=== PATIENT | female | born 1960 | race Caucasian/White ===

== ENCOUNTER 2025-01-13 21:10 | Emergency (ER) | payer OTHER, SELFPAY ==
[2025-01-13 21:19] VITALS: BP 160/109
[2025-01-13 21:40] LABS: % Eosinophils 14.1 % (0-6); % Immature Granulocytes 0.2 % (0-0.5); % Lymphocytes 30.8 % (20.5-51.1); % Monocytes 4.6 % (1.7-9.3); % Neutrophils 49.3 % (42.2-75.2); Absolute Basophils 0.1 10^3/uL (0-0.2); Absolute Eosinophils 1.4 10^3/uL (0-0.7); Absolute Lymphocytes 3.1 10^3/uL (1.2-3.4); Absolute Monocytes 0.5 10^3/uL (0.1-0.6); Hemoglobin 16.5 g/dL (12.0-16.0); Mean Corp Hgb Conc. 36.7 g/dL (33.0-37.0); Mean Corpuscular Hgb 33.3 pg (27.0-31.0); Mean Corpuscular Volume 90.9 fL (81.0-99.0); Nucleated Red Blood Cells % 0 %; Platelet Count 180 10^3/uL (130-400); Red Blood Cell Count 4.95 10^6/uL (4.20-5.40); Red Cell Dist. Width 12.2 % (11.5-14.5); White Blood Cell Count 10.1 10^3/uL (4.8-10.8)
[2025-01-13 21:54] LABS: ALT (SGPT) 46 U/L (0-35); AST (SGOT) 32 U/L (14-36); Albumin 4.3 g/dl (3.5-5.0); Alkaline Phosphatase 91 U/L (38-126); Blood Urea Nitrogen 17 mg/dl (7-17); Calcium 10.1 mg/dl (8.4-10.2); Carbon Dioxide 22 mmol/L (22-30); Chloride 108 mmol/L (98-107); Glucose 124 mg/dl (70-99); Potassium 3.9 mmol/L (3.5-5.1); Sodium 140 mmol/L (135-145); Total Bilirubin 0.6 mg/dl (0.2-1.3); Total Protein 7.5 g/dl (6.3-8.2); eGFR > 60.00
[2025-01-13 22:04] LABS: Troponin I < 0.012 ng/ml
[2025-01-13 23:06] VITALS: BP 153/97
[2025-01-13 23:12] VITALS: BMI 30.1
--- NOTE | 2025-01-13 23:31 | ED.GENMED ---
History of Present Illness
General
Chief Complaint: Cardiac Symptoms
Source: patient
Exam Limitations: none
Time Seen by Provider: 01/13/25 23:31
Nursing documentation reviewed up to this point in time: agreed with
History of Present Illness
History of Present Illness:
This is 65-year-old female with past medical history of asthma who presents emergency department today with concerns of chest pain. This started 3 days ago. Patient reports when the symptoms were started, she compares it to indigestion. She
reports that she had a burning sensation in middle of her chest associated with a lot of belching. Patient reports that she did take Pepcid which seemed to improve her symptoms. She reports that the symptoms came back and were lasting longer than
usual. Did not seem to be related to eating. She she did have some epigastric discomfort earlier which resolved. Patient currently denies abdominal pain. Patient reports that earlier today, she was gardening when she noticed the pain come back.
She is not short of breath. She denies any recent long distance travel or any redness or swelling in her legs. The pain resolved without intervention. Currently she is pain-free. She has no personal history of coronary artery disease. She does
have a family history of her mom at age 50 having a heart attack. She does not smoke.
Review of Systems
Review of Systems
All Other Systems: ROS reviewed and negative except as documented in HPI and ROS
Phy Exam
Physical Exam
Physical Exam:
General: Patient is well appearing and in no acute distress; non-toxic
Skin: Warm and dry, no rashes or lesions
Head: Normocephalic, atraumatic
Eyes: Sclera non-icteric. EOMs intact.
Cardiac: Regular rate and rhythm, no murmurs, no tenderness palpation of external chest wall
Peripheral Vascular: No lower extremity swelling or edema, 2+ dorsalis pedis pulses bilaterally, 2+ radial pulses bilaterally
Pulm: Normal respiratory effort, no wheezes, rales,
Abdomen: No abdominal tenderness to palpation, no palpable abdominal masses
Neuro: CN II-XII intact, no focal neurologic deficits.
Psychiatric: Appropriate mood and affect.
Scores
PE Wells Score
Symptoms of DVT: No
No alternative diagnosis better explains the illness: No
Tachycardia with pulse > 100: No
Immobilization (>=3 days) or surgery within previous 4 weeks: No
Prior history of DVT or pulmonary embolism: No
Presence of hemoptysis: No
Presence of malignancy: No
Pulmonary Embolism Risk Score: 0
Probability of PE: Pt is low risk
Course
Orders/Labs/Results
Orders:
Orders
01/13/25 21:11
ECG [Electrocardiogram (*1)] Urgent
Reason for Study: Chest Pain
EKG- Treatment ONCE
01/13/25 21:22
Cardiac Monitoring- Treatment ONCE
O2 Therapy [RESP] Urgent
Titrate/Wean O2 to maintain O2 sat greater than (%): 90
Special Instructions: Maintain sats >/=90%
Pulse Ox/spot Check [RESP] Urgent
Quantity: 1
Special Instructions: ON ROOM AIR
01/13/25 21:32
Complete Blood Count/With Diff Urgent
Comprehensive Metabolic Panel Urgent
Lipase Urgent
Comment: ADD ON
Troponin I Urgent
01/13/25 23:37
CR Chest - 2 Views Urgent
Comment:
Reason For Exam: CHEST PAIN
01/13/25 23:48
Add On- LAB Urgent
Tests Added?: lipase
Abnormal Lab Results
01/13/25
21:32
Hgb 16.5 H g/dL
(12.0-16.0)
MCH 33.3 H pg
(27.0-31.0)
Absolute Eos (auto) 1.4 H 10^3/uL
(0-0.7)
Eosinophils % 14.1 H %
(0-6)
Chloride 108 H mmol/L
(98-107)
Glucose 124 H mg/dl
(70-99)
ALT 46 H U/L
(0-35)
01/13/25 21:32
01/13/25 21:32
Vital Signs
Initial and Last Documented VS:
Initial Vital Signs
Temp Pulse Resp BP Pulse Ox
98.0 F 81 19 160/109 97
01/13/25 21:19 01/13/25 21:19 01/13/25 21:19 01/13/25 21:19 01/13/25 21:19
Last Documented Vital Signs
Temp Pulse Resp BP Pulse Ox
98.0 F 70 13 136/73 97
01/13/25 21:19 01/13/25 23:45 01/13/25 23:45 01/14/25 01:00 01/14/25 01:15
MDM/Problems Addressed
Differential Diagnosis Includes:
Differentials include ACS, pneumothorax, GERD, costochondritis
MDM/Problems Addressed:
65-year-old female presents emergency department today with concerns of squeezing chest pain. Started a few days ago. No associated shortness of breath. She had associated belching with it and transient epigastric pain. Currently she is
pain-free. On physical exam she is well-appearing no acute distress she is no epigastric tenderness. Her blood work is unremarkable. Her LFTs are normal. Her troponin is undetectable. Her EKG is nonischemic. Her chest x-ray is normal. Suspect
GERD as patient did have transient epigastric pain and associated belching. She is pain-free at this time. Advised patient to trial omeprazole as outpatient and follow-up with her primary. In light of patient's significant family history of early
cardiac disease, did recommend evaluation by stave block roller. Patient expressed understanding. Return precautions discussed. PE Wells score 0. Patient stable for discharge
Chronic conditions affecting care:
Asthma,
*Critical Care Note
Total Time (30-74mins, 75-104mins- exclusive of procedures): Not Applicable
ED Attending Note
-
Portions of this chart may have been created with voice recognition software.� Occasional wrong word or��sound alike� substitutions may have occurred due to the inherent limitations of voice recognition software.
Discharge Plan
Departure
Patient Disposition: Home (Routine Discharge)
Date of Disposition: 01/14/25
Time of Disposition: 01:17
Patient with high blood pressure during this ER visit?: Yes
Condition: Good
Discharge Problem:
Chest pain
Instructions: Chest Pain (DC), BLOOD PRESSURE
Referrals:
Slim Busch MD [Active, Cardiology]
NONE,* [Family Provider, Internal Medicine]
Activity Restrictions/Additional Instructions:
Please follow up with your primary care provider.
PLEASE RETURN EMERGENCY ROOM SHOULD YOU DEVELOP RETURN OF SYMPTOMS, SHORTNESS OF BREATH, SHARP UPPER BACK PAIN, PAIN IN YOUR JAW OR LEFT ARM, DIZZINESS, LIGHTHEADEDNESS, OR ANY OTHER SIGNS OR SYMPTOMS WORRISOME DEEP
Interventions
Interventions:
*Risk Screen - Suicide Last Done: 01/13/25 21:19
*General Assessment Last Done: 01/13/25 23:15
*Neglect/Abuse Screening Last Done: 01/13/25 21:19
*ED- Fall Risk Assessment Last Done: 01/13/25 23:15
*ED COVID-19 Vaccine History Last Done: 01/13/25 23:15
*Nursing Disposition Last Done: 01/14/25 01:19
ED- Pulmonary Assessment Last Done: 01/13/25 23:15
ED- Cardiac Assessment Last Done: 01/13/25 23:15
Discharge Date and Time
Discharge Date/Time: 01/14/25 01:27
Print Language: INDONESIAN
[2025-01-14 00:05] VITALS: BP 136/87
[2025-01-14 00:59] LABS: Lipase 219 U/L (23-300)
[2025-01-14 01:00] VITALS: BP 136/73
== END 2025-01-14 01:27 | disposition home or self-care (01) ==
LOC: EMR 21:10
PROVIDERS: EMERGENCY PHYSICIAN Student in an Organized Health Care Education/Training Program
DX: R07.89 Other chest pain (principal); J45.909 Unspecified asthma, uncomplicated; Z82.49 Family history of ischemic heart disease and other diseases of the circulatory system
CPT/HCPCS: 99283; 71046; 80053; 83690; 84484; 85025; 93005

== ENCOUNTER → 2025-03-09 09:14 | Outpatient (REF) | payer OTHER, SELFPAY ==
--- NOTE | 2025-03-09 10:15 | CARDSERVDEF ---
Echocardiogram with Definity completed after protocol screening completed. Allergies verified.
Patent IV site: _left AC____
IV site flushed with 0.9% NaCl pre and post administration.
Diluted bolus method utilized to enhance visualization of ventricular menezes.
Total volume given: __6.0__ mL
Patient tolerated all procedures well without complications.
#22 nestor placed Left AC. definity given for stress ECHO. INT d/c'd. Pressure held. No bleeding noted.
== END ==
LOC: RCS 09:14
PROVIDERS: ATTENDING PHYSICIAN Internal Medicine Cardiovascular Disease; FAMILY PHYSICIAN Student in an Organized Health Care Education/Training Program
DX: R07.89 Other chest pain (principal)
CPT/HCPCS: 93017; 93350